=== PATIENT | male | born 1970 | race African-American/Black ===

== ENCOUNTER 2023-04-27 02:32 | Emergency (ER) | payer MEDICAID ==
[~2023-04-27] VITALS: Ht 177.8 cm; Wt 77.1 kg
[2023-04-27 02:32] VITALS: BP 141/86
--- NOTE | 2023-04-27 02:35 | NUR ---
TO LOBBY A/W BED , AMBULATORY, BIBA FOR ANXIETY ABD DEPRESSSION
[2023-04-27 03:57] VITALS: BP 141/86
--- NOTE | 2023-04-27 03:57 | NUR ---
Patient discharged with v/s stable. Written and verbal after care instructions given and explained. Patient verbalized understanding. Ambulatory with steady gait. All questions addressed prior to discharge. Advised to follow up with PMD.
== END 2023-04-27 03:57 | disposition home or self-care (01) ==
LOC: MED 02:32
DX: F41.9 Anxiety disorder, unspecified (principal); R46.1 Bizarre personal appearance
CPT/HCPCS: 99283